=== PATIENT | male | born 2000 | race Two or more races ===

== ENCOUNTER 2025-07-31 18:05 | Emergency (ER) | payer OTHER ==
[~2025-07-31] VITALS: Ht 175.3 cm; Wt 85.7 kg
[2025-07-31] MEDS ORDERED: 0.9 % SODIUM CHLORIDE 1,000 ML IV ONE (18:45)
[2025-07-31] MEDS ORDERED: FAMOTIDINE/PF 20 MG/2 ML VIAL IV ONE (19:00)
[2025-07-31] MEDS ORDERED: ONDANSETRON HCL 2 MG/ML VIAL IV ONE (19:00)
[2025-07-31 20:12] LABS: BASO % 0.3 % (0.1-1.2); EOS # 0.00 (0.04-0.54); EOS % 0.0 % (0.7-7.0); LYMPH # 0.24 (1.18-3.74); LYMPH % 2.2 % (19.3-53.1); MEAN PLATELET VOLUME 10.80 fl (9.4-12.4); MONO # 0.43 (0.24-0.82); MONO % 4.0 % (4.7-12.5); NEUT # 9.95 (1.56-6.13); NEUT % 93.3 % (34.0-71.1); RED CELL DISTRIBUTION WIDTH 12.8 % (11.6-14.4)
[2025-07-31 20:37] LABS: ALT/SGPT 28.0 U/L (12-78); AST/SGOT 17.0 U/L (15-37); BILIRUBIN TOTAL 0.66 mg/dL (0.3-1.2); BUN CREA RATIO 15.0 (7.0-25.0); CREATININE SERUM 1.1 mg/dL (0.70-1.30); GFR 81.56; GLOBULINA 3.6 G/DL (2.4-3.5); GLUCOSE FASTING 145.0 mg/dL (65-100); OSMOLALITY SERUM 283.0 MOSM/KG (275-295)
[2025-07-31 21:37] LABS: COVID-19 AG NEGATIVE (NEGATIVE)
[2025-07-31 23:50] LABS: URINE APPEARANCE Clear; URINE BILIRRUBIN Negative (NEGATIVE); URINE BLOOD Moderate; URINE COLOR Yellow; URINE GLUCOSE Negative (NEGATIVE); URINE KETONE Negative (NEGATIVE); URINE LEUKOCYTE Negative; URINE NITRATE Negative; URINE PROTEIN Trace (NEGATIVE); URINE UROBILINOGEN 0.2 E.U./dl
[2025-07-31 23:56] LABS: URINE BACTERIA 5.7 uL (0.0-1933); URINE EPITHELIAL CELLS 2.4 uL (0.0-38.8); URINE RBC 164.1 uL (0.0-20.8); URINE WBC 9.3 uL (0.0-23.2)
[2025-08-01] MEDS ORDERED: ACETAMINOPHEN 500 MG GEL..CAP PO ONE (00:30)
[2025-08-01 00:34] LABS: URINE CAST 0.28 uL (0.0-1.40)
[2025-08-01] MEDS ORDERED: PEPCID AC20 MG PO (00:55)
[2025-08-01] MEDS ORDERED: ZOFRAN8 MG PO (00:55)
[2025-08-01] MEDS ORDERED: INTESTINEX680 M1 PO (00:55)
== END 2025-08-01 01:42 | disposition home or self-care (01) ==
LOC: ER 18:06
PROVIDERS: Preventive Medicine Public Health & General Preventive Medicine
DX: K52.89 Other specified noninfective gastroenteritis and colitis (principal); Z20.822 Contact with and (suspected) exposure to COVID-19